=== PATIENT | male | born 1940 | race Hispanic/Latino ===

== ENCOUNTER → 2018-07-04 | Outpatient (CLI) | payer MEDICARE | END | disposition home or self-care (01) | LOC: SHCH 14:54 | PROVIDERS: ATTEND Internal Medicine Cardiovascular Disease | DX: I35.8 Other nonrheumatic aortic valve disorders (principal); I51.7 Cardiomegaly | CPT/HCPCS: 93306 ==

== ENCOUNTER → 2018-07-07 | Outpatient (CLI) | payer MEDICARE | END | disposition home or self-care (01) | LOC: SHCH 10:47 | PROVIDERS: ATTEND Internal Medicine Cardiovascular Disease | DX: I65.23 Occlusion and stenosis of bilateral carotid arteries (principal); I10 Essential (primary) hypertension | CPT/HCPCS: 93880; 93970 ==

== ENCOUNTER 2019-10-22 04:25 | Inpatient (IN) | payer MEDICARE ==
[~2019-10-22] VITALS: Ht 162.6 cm; Wt 83.9 kg
[2019-10-22 05:36] LABS: BASOPHILS % (AUTO) 1.6 % (0.0-5.0); HEMATOCRIT 28.5 % (42-54); LYMPHOCYTES % (AUTO) 6.5 % (21.0-51.0); MEAN CORPUSCULAR HEMOGLOBIN 26.5 pg (27.0-33.0); MEAN CORPUSCULAR HGB CONC 31.6 g/dL (32.0-36.0); MEAN CORPUSCULAR VOLUME 84.1 fL (79-99); MONOCYTES % (AUTO) 7.8 % (3.0-13.0); NEUTROPHILS % (AUTO) 77.9 % (40.0-77.0); PLATELET COUNT (AUTO) 247 K/uL (130-400); RED BLOOD CELL COUNT(AUTO) 3.39 MIL/uL (4.50-6.20); RED CELL DISTRIBUTION WIDTH 15.9 % (11.0-15.5); WHITE BLOOD COUNT (AUTO) 3.1 K/uL (4.8-10.8)
[2019-10-22 05:48] LABS: ALBUMIN 1.9 g/dL (3.5-5.0); BILIRUBIN,TOTAL 0.4 mg/dL (0.2-1.0); CREATININE 3.3 mg/dL (0.5-1.5); INR 1.06 (0.85-1.15); PARTIAL THROMBOPLASTIN TIME 37.6 SEC (26.3-35.5); PROTHROMBIN TIME 11.4 SEC (9.6-11.6); TOTAL PROTEIN, SERUM 5.8 g/dL (6.0-8.3); TROPONIN I 0.38 ng/mL (0.00-0.06)
[2019-10-22] MEDS ORDERED: INSULIN HUMULIN R 100 UNIT/ML 3ML ONE (06:19)
[2019-10-22] MEDS ORDERED: AZITHROMYCIN 500MG+NS 250ML 250 ML IV ONE (07:27)
[2019-10-22] MEDS ORDERED: CEFTRIAXONE SODIUM 1 GM ONE (07:27)
[2019-10-22] MEDS ORDERED: METHYLPREDNISOLONE SOD SUCC 40MG/ML 1ML ONE (07:27)
[2019-10-22] MEDS: HEPARIN SODIUM 5000UNIT/ML 1ML VIAL SQ SCH ×2 (07:45→19:45)
[2019-10-22] MEDS: CEFTRIAXONE SODIUM 1 GM IVP SCH ×2 (07:45→19:45)
[2019-10-22] MEDS ORDERED: LACTULOSE 20 GM/30 ML UDCUP PO PRN (07:45)
[2019-10-22] MEDS ORDERED: ACETAMINOPHEN 325 MG TAB PO PRN ×2 (07:45)
[2019-10-22] MEDS ORDERED: MAG HYDROX/AL HYDROX/SIMETH ES 30 ML SUSP UDCUP PO PRN (07:45)
[2019-10-22] MEDS ORDERED: PHARMACY COMMUNICATION MISC SCH (07:45)
[2019-10-22] MEDS ORDERED: DOXYCYCLINE 100MG+NS 250ML IV SCH (07:45)
[2019-10-22] MEDS ORDERED: MORPHINE SULFATE 2 MG/ML 1ML SYG IV PRN (07:45)
[2019-10-22] MEDS ORDERED: ONDANSETRON HCL 4 MG/2 ML VIAL IV PRN (07:45)
[2019-10-22] MEDS ORDERED: ERGOCALCIFEROL (VITAMIN D2) 50,000 UNIT CAPSULE PO SCH (07:45)
[2019-10-22 07:55] LABS: ABG BASE EXCESS -3.6 mmol/L (-2.0-3.0); ABG HCO3 22.4 mmol/L (21.0-28.0); ABG OXYGEN SATURATION 91.1 % (95.0-99.0); ABG PCO2 44 mmHg (35-48)
[2019-10-22] MEDS: METHYLPREDNISOLONE SOD SUCC 40MG/ML 1ML IVP SCH ×3 (09:00→21:00)
[2019-10-22] MEDS: ASCORBIC ACID 500 MG TAB PO SCH (09:00)
[2019-10-22] MEDS ORDERED: ZINC SULFATE 220 CAPSULE PO SCH (09:00)
[2019-10-22] MEDS: FAMOTIDINE 20MG TAB 20 MG TAB PO SCH (09:00)
--- NOTE | 2019-10-22 09:00 | NUR ---
NEPHROLOGY DR. VELAZQUEZ CAME TO SEE PATIENT BUT WAS TOLD BY PATIENT THAT HIS LEVEE SUPERINTENDENT WAS DR. MONTOYA. DR. VELAZQUEZ ASKED IF WE COULD CONSULT HIS PRIMARY LEVEE SUPERINTENDENT.
[2019-10-22] MEDS ORDERED: DOXYCYCLINE HYCLATE 100 MG TABLET PO ONE (09:03)
[2019-10-22] MEDS ORDERED: ASCORBIC ACID 500 MG TAB ONE (09:03)
[2019-10-22] MEDS ORDERED: ERGOCALCIFEROL (VITAMIN D2) 50,000 UNIT CAPSULE ONE (09:03)
[2019-10-22] MEDS ORDERED: FAMOTIDINE 20MG TAB 20 MG TAB ONE (09:04)
[2019-10-22] MEDS ORDERED: HEPARIN SODIUM 5000UNIT/ML 1ML VIAL ONE (09:04)
[2019-10-22] MEDS ORDERED: ZINC SULFATE 220 CAPSULE ONE (09:05)
--- NOTE | 2019-10-22 09:10 | NUR ---
DR. JAN MONTOYA WAS CALLED AND TOLD ABOUT THE CONSULT. SHE STATED THAT SHE WAS QUARANTINED AND COULD NOT SEE PATIENTS AT THIS TIME. SHE ASKED ME TO CALL DR. GEORGE WHO WILL BE COVERING HER PATIENTS WHILE SHE IS OUT.
--- NOTE | 2019-10-22 09:15 | NUR ---
DR. DORIS GEORGE WAS CONTACTED AND NOTIFIED OF THE NEED FOR THE CONSULT. HE STATED THAT HE WAS NOT AWARE OF COVERING HER PATIENTS AND THAT SHE NEEDED TO CALL HIM.
--- NOTE | 2019-10-22 09:20 | NUR ---
DR. JAN MONTOYA WAS NOTIFIED OF DR. GEORGE'S RESPONSE AND SHE STATED THAT SHE WOULD BE CALLING HIM ONCE WE HANG UP.
[2019-10-22 11:25] LABS: APPEARANCE,URINE Cloudy (CLEAR); BILIRUBIN,URINE Small (NEGATIVE); COLOR,URINE Dark Yellow (YELLOW); GLUCOSE, URINE (UA) Negative (NEGATIVE); KETONES,URINE Trace mg/dL (NEGATIVE); LEUKOCYTE ESTERASE ,URINE Trace (NEGATIVE); NITRATE,URINE Negative (NEGATIVE); OCCULT BLOOD,URINE Negative (NEGATIVE); PROTEIN,URINE POS 2+ mg/dL (NEGATIVE)
[2019-10-22] MEDS: INSULIN HUMULIN R 100 UNIT/ML 3ML SQ SCH ×3 (11:30→21:38)
[2019-10-22 11:40] LABS: AMORPHOUS SEDIMENT,UR Moderate /LPF (None Seen); BACTERIA,URINE Few /HPF (None Seen); RBC,URINE 0-1 /HPF (0-1); SQUAMOUS EPITHELIAL CELL,UR Rare /HPF (0-2); WBC,URINE 0-1 /HPF (0-1)
[2019-10-22 11:50] VITALS: BP 127/60
--- NOTE | 2019-10-22 12:25 | NUR ---
ADMISSION AND PTS HISTORY OBTAINED FROM PATIENT'S DAUGHTER AND CARE PROVIDER, ROSA ) VIA TELEPHONE. HOME MEDICATIONS RECONCILED. REPORTED OFF TO PRIMARY NURSE, WILLY COOMBS.
[2019-10-22] MEDS ORDERED: DOXA4TAB3 PO (12:46)
[2019-10-22] MEDS ORDERED: ATOR10 PO (12:46)
[2019-10-22] MEDS ORDERED: INSU100V12 SQ (12:46)
[2019-10-22] MEDS ORDERED: FINA5TAB41 PO (12:46)
[2019-10-22] MEDS ORDERED: CLON0.2T PO (12:46)
[2019-10-22] MEDS ORDERED: TACR1CAP10 PO (12:46)
[2019-10-22] MEDS ORDERED: LEVO75 PO (12:46)
[2019-10-22] MEDS ORDERED: VALS1TAB80 PO (12:46)
[2019-10-22] MEDS ORDERED: ASPI-1005 PO (12:46)
[2019-10-22] MEDS ORDERED: LEVO50TA11 PO (12:46)
[2019-10-22] MEDS ORDERED: FERR325T22 PO (12:46)
[2019-10-22] MEDS ORDERED: FURO20TA4 PO (12:46)
[2019-10-22] MEDS ORDERED: MYCO500T5 PO (12:46)
[2019-10-22] MEDS ORDERED: HYDR-4154 PO (12:46)
[2019-10-22 16:00] VITALS: BP 162/76
[2019-10-22] MEDS: TACROLIMUS 1 MG CAPSULE PO SCH (21:00)
[2019-10-22] MEDS: DOXYCYCLINE HYCLATE 100 MG TABLET PO SCH (22:00)
[2019-10-22 22:27] VITALS: BP 193/88
[2019-10-23] VITALS (7 sets, daily range): BP systolic 148–198; BP diastolic 70–92
[2019-10-23 05:47] LABS: BASOPHILS % (AUTO) 0.8 % (0.0-5.0); HEMATOCRIT 30.5 % (42-54); LYMPHOCYTES % (AUTO) 4.7 % (21.0-51.0); MEAN CORPUSCULAR HEMOGLOBIN 27.3 pg (27.0-33.0); MEAN CORPUSCULAR HGB CONC 32.8 g/dL (32.0-36.0); MEAN CORPUSCULAR VOLUME 83.3 fL (79-99); MONOCYTES % (AUTO) 4.3 % (3.0-13.0); PLATELET COUNT (AUTO) 336 K/uL (130-400); RED BLOOD CELL COUNT(AUTO) 3.66 MIL/uL (4.50-6.20); RED CELL DISTRIBUTION WIDTH 15.7 % (11.0-15.5); WHITE BLOOD COUNT (AUTO) 5.2 K/uL (4.8-10.8)
[2019-10-23 06:13] LABS: BILIRUBIN,TOTAL 0.4 mg/dL (0.2-1.0); POTASSIUM 4.1 mmol/L (3.5-5.1); TOTAL PROTEIN, SERUM 6.3 g/dL (6.0-8.3)
[2019-10-23 07:00] LABS: CRP QUANTITATIVE 273.6 mg/L (0.00-9.0)
[2019-10-23] MEDS: INSULIN HUMULIN R 100 UNIT/ML 3ML SQ SCH ×4 (07:30→20:56)
--- NOTE | 2019-10-23 08:45 | NUR ---
SBP 190'S; PAGED AJ PHOSPHORUS PROCESSING SUPERVISOR STATES WILL RESUME HOME MEDS.
[2019-10-23] MEDS ORDERED: TACROLIMUS 1 MG CAPSULE PO SCH (10:13)
[2019-10-23] MEDS: CEFTRIAXONE SODIUM 1 GM IVP SCH ×2 (10:40→19:57)
[2019-10-23] MEDS: ASCORBIC ACID 500 MG TAB PO SCH (10:41)
[2019-10-23] MEDS: METHYLPREDNISOLONE SOD SUCC 40MG/ML 1ML IVP SCH (10:42)
[2019-10-23] MEDS: TACROLIMUS 1 MG CAPSULE PO SCH ×2 (10:42→20:07)
[2019-10-23] MEDS: FAMOTIDINE 20MG TAB 20 MG TAB PO SCH (10:42)
[2019-10-23] MEDS: DOXYCYCLINE HYCLATE 100 MG TABLET PO SCH ×2 (10:42→20:13)
[2019-10-23] MEDS: DOXAZOSIN MESYLATE 2 MG TABLET PO SCH ×2 (10:43→20:15)
[2019-10-23] MEDS: FERROUS SULFATE 325 MG TABLET.DR PO SCH (10:43)
[2019-10-23] MEDS: HEPARIN SODIUM 5000UNIT/ML 1ML VIAL SQ SCH ×2 (11:12→19:59)
[2019-10-23] MEDS ORDERED: HYDRALAZINE HCL 20 MG/ML VIAL IV PRN (12:00)
[2019-10-23] MEDS ORDERED: HYDRALAZINE HCL 25 MG TABLET ONE (12:19)
[2019-10-23] MEDS: ZINC SULFATE 220 CAPSULE PO SCH (12:53)
[2019-10-23] MEDS: HYDRALAZINE HCL 25 MG TABLET PO SCH ×2 (12:54→20:44)
[2019-10-23] MEDS: FINASTERIDE 5 MG TABLET PO SCH (12:56)
[2019-10-23] MEDS: MYCOPHENOLATE MOFETIL 250 MG CAPSULE PO SCH ×2 (12:56→21:00)
[2019-10-23] MEDS: INSULIN GLARGINE 100 UNITS/ML 10 ML VIAL SQ SCH ×2 (12:58→17:15)
[2019-10-23] MEDS: PHARMACY COMMUNICATION MISC SCH ×2 (13:30→21:30)
[2019-10-23] MEDS: SODIUM CHLORIDE 0.9% 1000ML 1,000 ML IV SCH (13:47)
--- NOTE | 2019-10-23 17:14 | NUR ---
JENELLE NOTE/IA UNABLE TO MEET WITH PATIENT, NEXT OF KIN CALLED, INGA JALLOH. PER DAUGHTER, PATIENT LIVES WITH SPOUSE AND DAUGHTERS, NEEDS ASSISTANCE WITH ADLS, HAS USE OF PROVIDER LESS THAN 30 HR WITH [facility], HAS USE OF [facility], AND [facility] IN [place]. PER DAUGHTER, FEELS SAFE FOR PATIENT TO RETURN HOME ONCE MEDICALLY CLEARED. Addendum: 10/23/19 at 1718 by DOLORES FERRER RN CM Amended: Links added.
[2019-10-23] MEDS ORDERED: DEXAMETHASONE 4 MG TAB PO SCH (20:00)
[2019-10-23] MEDS: ATORVASTATIN CALCIUM 10 MG TABLET PO SCH (20:08)
[2019-10-23] MEDS: ASPIRIN 81MG TAB.CHEW PO SCH (20:13)
[2019-10-23] MEDS: CLONIDINE HCL 0.2 MG TABLET PO SCH (20:42)
[2019-10-23] MEDS ORDERED: VALSARTAN HCTZ PO SCH (21:00)
--- NOTE | 2019-10-23 23:39 | NUR ---
SYNTHROID MEDICATION SPOKE WITH DTR PT TAKES SYNTHROID QD.
[2019-10-24] VITALS (33 sets, daily range): BP systolic 59–175; BP diastolic 37–105
[2019-10-24] MEDS ORDERED: ALBUTEROL INHALER 90MCG/INH IH ONE (00:14)
[2019-10-24] MEDS ORDERED: HYDRALAZINE HCL 20 MG/ML VIAL IV PRN (00:15)
[2019-10-24] MEDS ORDERED: ALBUTEROL INHALER 90MCG/INH IH PRN (00:15)
--- NOTE | 2019-10-24 01:10 | NUR ---
RAPID RESPONSE ACTIVATED 0006 CALLED RAPID RESPONSE ON PT DUE TO RESP DISTRESS SATS 70% PT DISCONNECTED FROM O2, PT TACHYPNEIC, WITH WHEEZING NOTED, AND ASHEN, VITALS 200/94, 117, 40, 70%. MD CHAIREZ PRESENT AT BEDSIDE, RECEIVED NEW ORDERS. PT PLACED ON 15L NON REBREATER AND ELEVATED HOB 30%, PT RESPONDED AND REBOUNDED 0030 VS 156/83,86,24,99%.
[2019-10-24] MEDS: SODIUM CHLORIDE 0.9% 1000ML 1,000 ML IV SCH (02:35)
[2019-10-24 04:44] LABS: BASOPHILS % (AUTO) 0.6 % (0.0-5.0); HEMATOCRIT 30.3 % (42-54); LYMPHOCYTES % (AUTO) 1.7 % (21.0-51.0); MEAN CORPUSCULAR HGB CONC 32.7 g/dL (32.0-36.0); MEAN CORPUSCULAR VOLUME 82.8 fL (79-99); MONOCYTES % (AUTO) 4.1 % (3.0-13.0); NEUTROPHILS % (AUTO) 90.4 % (40.0-77.0); NUCLEATED RED BLOOD CELLS 0.4 % (0.0-0.19); PLATELET COUNT (AUTO) 341 K/uL (130-400); RED BLOOD CELL COUNT(AUTO) 3.66 MIL/uL (4.50-6.20); RED CELL DISTRIBUTION WIDTH 15.9 % (11.0-15.5); WHITE BLOOD COUNT (AUTO) 7.1 K/uL (4.8-10.8)
[2019-10-24 05:03] LABS: ALBUMIN 1.9 g/dL (3.5-5.0); BILIRUBIN,TOTAL 0.4 mg/dL (0.2-1.0); CREATININE 4.5 mg/dL (0.5-1.5); PHOSPHORUS 5.1 mg/dL (2.5-4.9); POTASSIUM 3.9 mmol/L (3.5-5.1); THYROID STIMULATING HORMONE 0.16 uIU/mL (0.36-3.74); TOTAL PROTEIN, SERUM 6.1 g/dL (6.0-8.3)
[2019-10-24 05:15] LABS: ABG BASE EXCESS -4.8 mmol/L (-2.0-3.0); ABG HCO3 19.4 mmol/L (21.0-28.0); ABG OXYGEN SATURATION 88.8 % (95.0-99.0); ABG PCO2 33 mmHg (35-48)
[2019-10-24] MEDS ORDERED: DILTIAZEM HCL 125 MG/25 ML 125 MG in SODIUM CHLORIDE 0.9% 100 ML IV PRN (05:15)
[2019-10-24] MEDS ORDERED: DILTIAZEM HCL 5 MG/ML 5 ML VIAL IVP PRN (05:15)
[2019-10-24] MEDS ORDERED: DILTIAZEM HCL 5 MG/ML 10 ML VIAL IV ONE (05:25)
[2019-10-24] MEDS: PHARMACY COMMUNICATION MISC SCH ×3 (05:30→21:30)
--- NOTE | 2019-10-24 05:52 | NUR ---
CHANGE IN STATUS PT RESTLESS, TACHYPNEIC RR 34, ASHEN, INCREASED SOB, MD CHAIREZ NOTIFIED OF PT STATUS. STAT 12 LEAD EKG OBTAINED ALONG WITH ABG'S CXR, BNP EKG AND TELE CONFIRMED AFIB/AFLUTTER 80-120, VS 152/68, 120,34,96%. NOTIFIED DIE OPERATOR FOR STAT DICTATION ON CXR, CARDIZEM DRIP STARTED, TITRATION PER PROTOCOL HR <100 AND SBP<100. CARDIZEM CURRENTLY AT 5MG VSS, PT CONTINUED ON NON REBREATHER 103/54,83,28, O2 96%, WILL CONTINUE TO MONITOR PT FOR CHANGES Addendum: 10/24/19 at 0646 by IVETH GUZMAN RN RN CARDIZEM HR <60 SBP<90
[2019-10-24] MEDS: HEPARIN SODIUM 5000UNIT/ML 1ML VIAL SQ SCH ×2 (07:45→20:30)
--- NOTE | 2019-10-24 07:55 | NUR ---
No report received from floor RN. RN called while this RN was in room stabilizing pt. as per charge entry clerk, RN caring for pt left. pt received in resp distress. 02 sat 72% on 15lpm nrb. Bedside monitor car operator showing afib pt on cardizem drip. Rapid response called. Spoke to Dr. Oliva, as per MD "I can't put in orders on a pt I don't see" RN placed second peripheral IV in pt. RT at bedside. pt placed on bipap 100% 12
[2019-10-24] MEDS: INSULIN GLARGINE 100 UNITS/ML 10 ML VIAL SQ SCH ×2 (08:00→17:57)
[2019-10-24 08:52] LABS: ABG HCO3 18.3 mmol/L (21.0-28.0); ABG OXYGEN SATURATION 93.8 % (95.0-99.0); ABG PCO2 37 mmHg (35-48)
[2019-10-24] MEDS: DOXYCYCLINE HYCLATE 100 MG TABLET PO SCH ×3 (09:00→20:36)
[2019-10-24] MEDS ORDERED: BUMETANIDE 0.25 MG/ML 10 ML VIAL IV SCH (09:00)
[2019-10-24] MEDS: HYDRALAZINE HCL 25 MG TABLET PO SCH ×4 (09:00→20:44)
[2019-10-24] MEDS: DOXAZOSIN MESYLATE 2 MG TABLET PO SCH ×4 (09:00→21:00)
[2019-10-24] MEDS ORDERED: FUROSEMIDE 20 MG TABLET PO SCH (09:00)
[2019-10-24] MEDS: FERROUS SULFATE 325 MG TABLET.DR PO SCH (09:00)
[2019-10-24] MEDS: ASCORBIC ACID 500 MG TAB PO SCH (09:00)
[2019-10-24] MEDS ORDERED: SODIUM CHLORIDE 0.9% 1000ML 1,000 ML IV SCH (09:00)
[2019-10-24] MEDS: TACROLIMUS 1 MG CAPSULE PO SCH ×2 (09:00→20:31)
[2019-10-24] MEDS ORDERED: DEXMEDETOMIDINE HCL 400 MCG in SODIUM CHLORIDE 0.9% 100 ML IV SCH ×4 (10:45)
[2019-10-24] MEDS: INSULIN HUMULIN R 100 UNIT/ML 3ML SQ SCH ×4 (11:30→20:29)
[2019-10-24] MEDS: ZINC SULFATE 220 CAPSULE PO SCH (12:00)
[2019-10-24] MEDS: FINASTERIDE 5 MG TABLET PO SCH (12:00)
--- NOTE | 2019-10-24 12:15 | NUR ---
Had facetime meeting with pt's daughter Leena and pt's spouse. Family was able to talk to pt and see pt's status. RN had discussion with end of life decisions. As per family pt remains full code.
[2019-10-24] MEDS: CEFTRIAXONE SODIUM 1 GM IVP SCH ×2 (12:39→20:30)
[2019-10-24] MEDS: MYCOPHENOLATE MOFETIL 250 MG CAPSULE PO SCH ×3 (12:40→21:00)
[2019-10-24] MEDS: FAMOTIDINE 20MG TAB 20 MG TAB PO SCH (12:58)
[2019-10-24] MEDS: METOPROLOL TARTRATE 1 MG/ML 5ML VIAL IV SCH ×3 (12:59→20:34)
[2019-10-24] MEDS: LEVOTHYROXINE 75 MCG TABLET PO SCH (13:00)
[2019-10-24] MEDS: DEXAMETHASONE SOD PHOSPHATE 4 MG/ML 1ML VIAL IVP SCH (17:54)
--- NOTE | 2019-10-24 18:58 | NUR ---
Report endorsed to WILLY Pope
[2019-10-24] MEDS: ASPIRIN 81MG TAB.CHEW PO SCH (20:36)
[2019-10-24] MEDS: ATORVASTATIN CALCIUM 10 MG TABLET PO SCH (20:36)
[2019-10-24] MEDS: CLONIDINE HCL 0.2 MG TABLET PO SCH (21:00)
[2019-10-24] MEDS ORDERED: LOSARTAN 100 MG TABLET PO SCH (21:00)
[2019-10-24] MEDS ORDERED: HYDROCHLOROTHIAZIDE 25 MG TABLET PO SCH (21:00)
--- NOTE | 2019-10-24 22:00 | NUR ---
NG INSERTION NG TUBE INSERTION ATTEMPTED BY 3 DIFFERENT RN'S ALL ATTEMPTS WERE UNSUCCESSFUL. PATIENT DID NOT TOLERATE PLACEMENT WELL. NO PO MEDS COULD BE GIVEN INCLUDING ANTIREJECTION MEDICINE. WILL INFORM MD ON AM ROUNDS.
[2019-10-25] VITALS (51 sets, daily range): BP systolic 108–184; BP diastolic 48–100
[2019-10-25] MEDS: METOPROLOL TARTRATE 1 MG/ML 5ML VIAL IV SCH ×4 (03:30→21:30)
[2019-10-25 03:39] LABS: ABG HCO3 19.5 mmol/L (21.0-28.0); ABG OXYGEN SATURATION 93.5 % (95.0-99.0); ABG PCO2 39 mmHg (35-48)
[2019-10-25 04:24] LABS: BASOPHILS % (AUTO) 0.4 % (0.0-5.0); HEMATOCRIT 27.6 % (42-54); LYMPHOCYTES % (AUTO) 1.3 % (21.0-51.0); MEAN CORPUSCULAR HEMOGLOBIN 27.2 pg (27.0-33.0); MEAN CORPUSCULAR VOLUME 82.6 fL (79-99); MONOCYTES % (AUTO) 3.4 % (3.0-13.0); NEUTROPHILS % (AUTO) 92.4 % (40.0-77.0); NUCLEATED RED BLOOD CELLS 0.3 % (0.0-0.19); PLATELET COUNT (AUTO) 294 K/uL (130-400); RED BLOOD CELL COUNT(AUTO) 3.34 MIL/uL (4.50-6.20); RED CELL DISTRIBUTION WIDTH 16.2 % (11.0-15.5); WHITE BLOOD COUNT (AUTO) 6.8 K/uL (4.8-10.8)
[2019-10-25] MEDS: PHARMACY COMMUNICATION MISC SCH ×3 (05:30→21:30)
[2019-10-25] MEDS: LEVOTHYROXINE 75 MCG TABLET PO SCH (05:38)
--- NOTE | 2019-10-25 05:38 | NUR ---
CONVALESCENT PLASMA GIVEN 2 UNITS OF CONVALESCENT PLASMA GIVE, TOLERATED WITHOUT DIFFICULTY.
[2019-10-25 06:55] LABS: BILIRUBIN,TOTAL 0.4 mg/dL (0.2-1.0); CREATININE 4.9 mg/dL (0.5-1.5); PHOSPHORUS 5.9 mg/dL (2.5-4.9); TOTAL PROTEIN, SERUM 6.3 g/dL (6.0-8.3)
[2019-10-25] MEDS: INSULIN HUMULIN R 100 UNIT/ML 3ML SQ SCH ×4 (07:30→22:00)
--- NOTE | 2019-10-25 07:45 | NUR ---
Pt tachypneic, labored at rest 02 sat in the 70s-80s. cpap in place. RT at bedside. Code blue called. pt intubated by Dr. Melgar with ett 7.5 25@ the lip. see MAR for RSI meds. + color change. cxr done, placement confirmed. Daughter Amira made aware. RN will continue to monitor. Addendum: 10/25/19 at 1127 by GERMAN GRIFFIN RN RN 20 of etomidate given at 0835 50 of Rocuronium given at 0836
[2019-10-25 07:58] LABS: CRP QUANTITATIVE 245.9 mg/L (0.00-9.0)
[2019-10-25] MEDS: INSULIN GLARGINE 100 UNITS/ML 10 ML VIAL SQ SCH ×2 (08:00→17:00)
[2019-10-25] MEDS ORDERED: ROCURONIUM BROMIDE 100 MG in SODIUM CHLORIDE 0.9% 100 ML IV SCH (08:35)
[2019-10-25] MEDS ORDERED: ETOMIDATE 2 MG/ML 10 ML VIAL IVP SCH (08:35)
[2019-10-25] MEDS ORDERED: FENTANYL 2500MCG+NS 250ML 250 ML IV ONE (08:44)
[2019-10-25] MEDS ORDERED: FENTANYL CITRATE PF 0.05 MG/ML 1,000 MCG in SODIUM CHLORIDE 0.9% 100 ML IVPB SCH (08:45)
[2019-10-25 10:00] LABS: ABG BASE EXCESS -8.7 mmol/L (-2.0-3.0); ABG OXYGEN SATURATION 93.9 % (95.0-99.0); ABG PCO2 49 mmHg (35-48)
[2019-10-25] MEDS: CEFTRIAXONE SODIUM 1 GM IVP SCH ×2 (10:42→22:23)
[2019-10-25] MEDS: DEXAMETHASONE SOD PHOSPHATE 4 MG/ML 1ML VIAL IVP SCH (10:43)
[2019-10-25] MEDS: HEPARIN SODIUM 5000UNIT/ML 1ML VIAL SQ SCH ×2 (10:44→22:00)
[2019-10-25] MEDS ORDERED: SODIUM BICARB 50MEQ 50ML VIAL IV SCH (11:45)
--- NOTE | 2019-10-25 12:15 | NUR ---
Dr. Kuo rounding on pt. MD made aware of BUN, creatinine, and phosphorus level. MD wants renal to update plan of care for pt. RN paged Dr. Russo at this time, awaiting for call back.
[2019-10-25] MEDS ORDERED: FAMOTIDINE/PF 20 MG/2 ML VIAL IV ONE (12:47)
--- NOTE | 2019-10-25 13:39 | NUR ---
Second call out to Dr. Russo, awaiting call back.
--- NOTE | 2019-10-25 14:45 | NUR ---
Third call out to Dr. Russo, awaiting call back. load test mechanic made aware of inability to get in touch with [employer]. As per rn midwife we will consult another nephrology group who will see pt tomorrow. Dr. Kuo made aware.
[2019-10-25] MEDS: ZINC SULFATE 220 CAPSULE PO SCH (16:55)
[2019-10-25] MEDS: TACROLIMUS 1 MG CAPSULE PO SCH (16:56)
[2019-10-25] MEDS: ASCORBIC ACID 500 MG TAB PO SCH (17:24)
[2019-10-25] MEDS: FERROUS SULFATE 325 MG TABLET.DR PO SCH (17:24)
[2019-10-25] MEDS: FINASTERIDE 5 MG TABLET PO SCH (17:24)
[2019-10-25] MEDS: DOXAZOSIN MESYLATE 2 MG TABLET PO SCH (21:00)
[2019-10-25] MEDS: ATORVASTATIN CALCIUM 10 MG TABLET PO SCH (22:24)
[2019-10-25] MEDS: ASPIRIN 81MG TAB.CHEW PO SCH (22:24)
[2019-10-25] MEDS: DOXYCYCLINE HYCLATE 100 MG TABLET PO SCH (22:25)
[2019-10-25] MEDS: FAMOTIDINE/PF 20 MG/2 ML VIAL IV SCH (22:25)
[2019-10-25] MEDS: CLONIDINE HCL 0.2 MG TABLET PO SCH (22:30)
[2019-10-25] MEDS: HYDRALAZINE HCL 25 MG TABLET PO SCH (22:31)
[2019-10-25] MEDS: FENTANYL 2500MCG+NS 250ML 250 ML IV SCH (22:43)
[2019-10-26] VITALS (36 sets, daily range): BP systolic 36–176; BP diastolic 17–84
[2019-10-26] MEDS: METOPROLOL TARTRATE 1 MG/ML 5ML VIAL IV SCH ×2 (03:30→09:30)
[2019-10-26 04:00] LABS: HEMATOCRIT 27.3 % (42-54); MEAN CORPUSCULAR HEMOGLOBIN 26.8 pg (27.0-33.0); MEAN CORPUSCULAR HGB CONC 32.2 g/dL (32.0-36.0); MEAN CORPUSCULAR VOLUME 83.2 fL (79-99); NUCLEATED RED BLOOD CELLS 0.4 % (0.0-0.19); PLATELET COUNT (AUTO) 211 K/uL (130-400); RED BLOOD CELL COUNT(AUTO) 3.28 MIL/uL (4.50-6.20); RED CELL DISTRIBUTION WIDTH 16.3 % (11.0-15.5); WHITE BLOOD COUNT (AUTO) 7.5 K/uL (4.8-10.8)
[2019-10-26 04:17] LABS: ALBUMIN 1.9 g/dL (3.5-5.0); BILIRUBIN,TOTAL 0.4 mg/dL (0.2-1.0); CREATININE 5.5 mg/dL (0.5-1.5); POTASSIUM 4.6 mmol/L (3.5-5.1); TOTAL PROTEIN, SERUM 5.9 g/dL (6.0-8.3)
[2019-10-26] MEDS: PHARMACY COMMUNICATION MISC SCH ×2 (05:30→13:30)
[2019-10-26] MEDS ORDERED: LEVOTHYROXINE 50 MCG TABLET PO SCH (06:30)
[2019-10-26] MEDS: LEVOTHYROXINE 75 MCG TABLET PO SCH (06:45)
[2019-10-26 06:50] LABS: ABG BASE EXCESS -7.2 mmol/L (-2.0-3.0); ABG HCO3 19.6 mmol/L (21.0-28.0); ABG PCO2 44 mmHg (35-48)
[2019-10-26 06:55] LABS: BAND NEUTROPHILS % (MANUAL) 3 % (0-2); MONOCYTES % (MANUAL) 3 % (2-9); SEGMENTED NEUTROPHILS % 94 % (40-70)
[2019-10-26 06:56] LABS: MAN.DIFF COMMENT-IMPRESSION MANUAL DIFFERENTIAL
[2019-10-26 06:57] LABS: PLATELET MORPHOLOGY COMMENT ADEQUATE
[2019-10-26] MEDS: INSULIN HUMULIN R 100 UNIT/ML 3ML SQ SCH ×2 (07:30→11:30)
[2019-10-26] MEDS: INSULIN GLARGINE 100 UNITS/ML 10 ML VIAL SQ SCH (08:00)
[2019-10-26] MEDS: HYDRALAZINE HCL 25 MG TABLET PO SCH (09:00)
[2019-10-26] MEDS: FERROUS SULFATE 325 MG TABLET.DR PO SCH (09:00)
[2019-10-26] MEDS: DEXAMETHASONE SOD PHOSPHATE 4 MG/ML 1ML VIAL IVP SCH (09:34)
[2019-10-26] MEDS: FENTANYL 2500MCG+NS 250ML 250 ML IV SCH (09:36)
[2019-10-26] MEDS: HEPARIN SODIUM 5000UNIT/ML 1ML VIAL SQ SCH (09:38)
[2019-10-26] MEDS: CEFTRIAXONE SODIUM 1 GM IVP SCH (09:39)
[2019-10-26] MEDS: DOXYCYCLINE HYCLATE 100 MG TABLET PO SCH (09:39)
[2019-10-26] MEDS: ASCORBIC ACID 500 MG TAB PO SCH (09:39)
[2019-10-26] MEDS: TACROLIMUS 1 MG CAPSULE PO SCH (09:39)
[2019-10-26] MEDS: DOXAZOSIN MESYLATE 2 MG TABLET PO SCH (09:46)
[2019-10-26] MEDS: FAMOTIDINE/PF 20 MG/2 ML VIAL IV SCH (11:31)
[2019-10-26] MEDS: ZINC SULFATE 220 CAPSULE PO SCH (12:00)
[2019-10-26] MEDS ORDERED: SODIUM BICARBONATE 650 MG TAB PO SCH (12:00)
[2019-10-26] MEDS: FINASTERIDE 5 MG TABLET PO SCH (12:00)
--- NOTE | 2019-10-26 13:00 | NUR ---
Spoke to pt's daughter Amira who is his healthcare proxy. As per daughter the family has discussed and come to an agreement on withdrawing care. The family was informed of all options by Dr. Kuo. Second WILLY Calderon verified phone consent. RN filled out paper work.
[2019-10-26] MEDS ORDERED: DEXMEDETOMIDINE HCL 400 MCG in SODIUM CHLORIDE 0.9% 100 ML IV SCH (13:20)
--- NOTE | 2019-10-26 15:35 | NUR ---
Pt with decreasing BP. Family made aware of worsening condition. RN facetimed family so they could see the pt. Pt after facetime call. No withdrawal of care had taken place at this time. Phone call made to Amira to let her know of expiration. Attending and primary made aware.
[2019-10-26] MEDS: MYCOPHENOLATE MOFETIL 250 MG CAPSULE PO SCH (17:21)
== END 2019-10-26 16:36 | disposition expired | DRG 208 ==
LOC: EDH 04:25 → EDHIP 07:45 → 4CH 11:38 → 2CH 10-24 10:03
PROVIDERS: ADMIT Hospitalist; ATTEND Hospitalist
PROC: 5A09357 Assistance with Respiratory Ventilation, Less than 24 Consecutive Hours, Continuous Positive Airway Pressure (ICD-10-PCS; principal; 2019-10-24)
PROC: 5A1935Z Respiratory Ventilation, Less than 24 Consecutive Hours (ICD-10-PCS; 2019-10-25)
PROC: 0BH17EZ Insertion of Endotracheal Airway into Trachea, Via Natural or Artificial Opening (ICD-10-PCS; 2019-10-25)
PROC: XW13325 Transfusion of Convalescent Plasma (Nonautologous) into Peripheral Vein, Percutaneous Approach, New Technology Group 5 (ICD-10-PCS; 2019-10-25)
DX: U07.1 COVID-19 (principal); J12.89 Other viral pneumonia; N18.6 End stage renal disease; J96.01 Acute respiratory failure with hypoxia; N17.0 Acute kidney failure with tubular necrosis; I12.0 Hypertensive chronic kidney disease with stage 5 chronic kidney disease or end stage renal disease; T86.19 Other complication of kidney transplant; E87.1 Hypo-osmolality and hyponatremia; E03.9 Hypothyroidism, unspecified; I25.10 Atherosclerotic heart disease of native coronary artery without angina pectoris; Y83.0 Surgical operation with transplant of whole organ as the cause of abnormal reaction of the patient, or of later complication, without mention of misadventure at the time of the procedure; H91.90 Unspecified hearing loss, unspecified ear; E11.22 Type 2 diabetes mellitus with diabetic chronic kidney disease; D89.9 Disorder involving the immune mechanism, unspecified; I48.91 Unspecified atrial fibrillation; D64.9 Anemia, unspecified; Y92.89 Other specified places as the place of occurrence of the external cause; Z95.5 Presence of coronary angioplasty implant and graft; Z86.73 Personal history of transient ischemic attack (TIA), and cerebral infarction without residual deficits; Z79.899 Other long term (current) drug therapy
CPT/HCPCS: 31500; 36415; 36430; 36600; 71045; 80053; 80197; 81001; 82435; 82550; 82728; 82803; 82947; 82948; 83605; 83615; 83735; 83874; 83880; 84100; 84132; 84145; 84295; 84443; 84484; 85018; 85025; 85378; 85610; 85730; 86140; 86900; 86901; 86927; 87040; 87088; 87426; 87804; 93005; 93970; 94002; 94003; 94660; 99291; G0378; J0456; J0696; J1100; J1644; J1815; J2920; J3010; J3490; J7030; J7507; J7517; J8540